=== PATIENT | male | born 1945 | race Caucasian/White ===

== ENCOUNTER 2019-03-11 09:53 | Emergency (ER) | payer OTHER ==
[~2019-03-11] VITALS: Ht 182.9 cm; Wt 84.8 kg
[~2019-03-11 09:53] MED LIST: ASPI81CH PO; FINA5 PO; Flomax0.4 MG PO
[2019-03-11 10:22] LABS: BASOPHILS ABSOLUTE AUTO 0.06 K/mm3 (0.00-0.23); BASOPHILS PERCENT AUTO 1 % (0-2); EOSINOPHILS PERCENT AUTO 4 % (0-6); Hematocrit 45.3 % (37.0-53.0); Hemoglobin 15.4 g/dL (13.5-17.5); IMMATURE GRAN ABSOLUTE AUTO 0.02 K/mm3 (0.00-0.10); IMMATURE GRAN PERCENT AUTO 0 % (0-1); LYMPHOCYTES ABSOLUTE AUTO 1.76 K/mm3 (0.84-5.20); LYMPHOCYTES PERCENT AUTO 34 % (21-46); MONOCYTES PERCENT AUTO 10 % (4-13); Mean Corpuscular HGB 32.2 pg (26.0-34.0); Mean Corpuscular Volume 95 fL (80-100); Mean Platelet Volume 10.5 fL (9.1-12.4); NEUTROPHILS ABSOLUTE AUTO 2.68 K/mm3 (1.96-9.15); NEUTROPHILS PERCENT AUTO 51 % (41-73); Platelet Count 160 K/mm3 (150-400); RDW Coefficient Variation 12.4 % (11.7-14.2); RDW Standard Deviation 42.9 fL (35.1-46.3); Red Blood Cell Count 4.78 M/mm3 (4.30-5.90); White Blood Cell Count 5.22 K/mm3 (4.00-11.30)
[2019-03-11 10:40] LABS: Alanine Aminotransfer (ALT/SGP 29 U/L (12-78); Albumin, Blood 3.4 g/dL (3.4-5.0); Alk Phos 69 U/L (50-136); Anion Gap 6 mmol/L (6-16); Aspartate Aminotrans (AST/SGOT 25 U/L (12-37); Bilirubin, Total 0.5 mg/dL (0.1-1.0); Blood Urea Nitrogen 20 mg/dL (8-24); Bun/Creatinine Ratio 20.7 (12.0-20.0); CO2, Blood 24 mmol/L (21-32); Calcium, Blood 9.1 mg/dL (8.5-10.1); Chloride, Blood 107 mmol/L (98-108); Creatinine, Blood 0.97 mg/dL (0.60-1.20); Globulin, Blood 3.3 g/dL (2.2-4.0); Glomerular Filtration Rate >60 (60-); Glucose, Blood 160 mg/dL (70-99); Potassium, Blood 4.1 mmol/L (3.5-5.5); Sodium, Blood 137 mmol/L (136-145); Total Protein, Blood 6.7 g/dL (6.4-8.2)
== END 2019-03-11 11:30 | disposition home or self-care (01) ==
LOC: ER 09:53
PROVIDERS: Emergency Medicine
DX: T18.128A Food in esophagus causing other injury, initial encounter (principal); R55 Syncope and collapse; Z87.891 Personal history of nicotine dependence; Z88.8 Allergy status to other drugs, medicaments and biological substances; Z79.899 Other long term (current) drug therapy; Z79.82 Long term (current) use of aspirin; W45.8XXA Other foreign body or object entering through skin, initial encounter
CPT/HCPCS: 36415; 80053; 85025; 93005; 93010; 99284-25

== ENCOUNTER 2024-12-22 09:32 | Day surgery (SDC) | payer OTHER ==
[~2024-12-22] VITALS: Ht 177.8 cm; Wt 90.0 kg
[~2024-12-22 09:32] MED LIST changes: +NS 500 ML IV ONE
[2024-12-22] MEDS ORDERED: CeFAZolin Sodium 2,000 MG VIAL ONE (09:52)
[2024-12-22] MEDS ORDERED: NS 500 ML IV ONE (09:56)
[2024-12-22] MEDS ORDERED: OMEP20ER PO (09:58)
[2024-12-22] MEDS ORDERED: DOXA4 PO (09:58)
[2024-12-22] MEDS ORDERED: MELATONIN5 M1 PO (09:58)
[2024-12-22] MEDS ORDERED: Midazolam HCl 1MG / ML 2ML Vial ONE (10:15)
--- NOTE | 2024-12-22 10:23 | NUR ---
12/22/[email or web address] INJECTED 7ML LOCAL AT OP SITE. PT TOLERATED WELL.
[2024-12-22 10:54] VITALS: BP 144/76
== END 2024-12-22 11:13 | disposition home or self-care (01) ==
LOC: ORSCSDS 09:32
PROVIDERS: Orthopaedic Surgery
PROC: 01N50ZZ Release Median Nerve, Open Approach (ICD-10-PCS; principal; 2024-12-22 11:00)
DX: G56.01 Carpal tunnel syndrome, right upper limb (principal); J44.9 Chronic obstructive pulmonary disease, unspecified; Z87.891 Personal history of nicotine dependence; Z79.82 Long term (current) use of aspirin; Z79.899 Other long term (current) drug therapy
CPT/HCPCS: J0690; J2250; J7040

== ENCOUNTER 2025-02-07 21:10 | Inpatient (IN) | payer OTHER ==
[~2025-02-07] VITALS: Ht 182.9 cm; Wt 88.5 kg
[~2025-02-07 21:10] MED LIST changes: +DOXA4 PO; +MELATONIN5 M1 PO; -NS 500 ML IV ONE; +OMEP20ER PO
[2025-02-07] MEDS ORDERED: Morphine Sulfate 4 MG/1 ML Injection IV ONE (22:45)
[2025-02-07] MEDS ORDERED: Ondansetron HCl 2 MG / ML 2ML Vial IV ONE (22:50)
[2025-02-07] MEDS ORDERED: NS 1,000 ML IV SCH (22:50)
[2025-02-07 23:53] LABS: BASOPHILS ABSOLUTE AUTO 0.05 K/mm3 (0.00-0.23); BASOPHILS PERCENT AUTO 1 % (0-2); EOSINOPHILS ABSOLUTE AUTO 0.01 K/mm3 (0.00-0.68); EOSINOPHILS PERCENT AUTO 0 % (0-6); Hematocrit 43.8 % (37.0-53.0); Hemoglobin 15.0 g/dL (13.5-17.5); IMMATURE GRAN ABSOLUTE AUTO 0.04 K/mm3 (0.00-0.10); IMMATURE GRAN PERCENT AUTO 0 % (0-1); LYMPHOCYTES ABSOLUTE AUTO 0.73 K/mm3 (0.84-5.20); LYMPHOCYTES PERCENT AUTO 7 % (21-46); MONOCYTES ABSOLUTE AUTO 0.71 K/mm3 (0.16-1.47); MONOCYTES PERCENT AUTO 7 % (4-13); Mean Corpuscular HGB Conc 34.2 g/dL (31.5-36.5); Mean Corpuscular Volume 93 fL (80-100); NEUTROPHILS ABSOLUTE AUTO 9.27 K/mm3 (1.96-9.15); NEUTROPHILS PERCENT AUTO 86 % (41-73); NRBC ABSOLUTE 0.00 K/mm3 (0.00-0.02); NRBC Auto 0.0 /100 WBC (0.0-0.2); Platelet Count 196 K/mm3 (150-400); RDW Coefficient Variation 12.7 % (11.7-14.2); RDW Standard Deviation 43.6 fL (35.1-46.3)
[2025-02-07] MEDS ORDERED: CefTRIAXone Sodium 1,000 MG in NS 100 ML IV ONE (23:55)
[2025-02-08 00:09] LABS: Prothrombin Time Results 10.7 Sec (9.7-11.5)
[2025-02-08 00:18] LABS: Alanine Aminotransfer (ALT/SGP 32.0 U/L (12-78); Albumin, Blood 3.5 g/dL (3.4-5.0); Albumin/Globulin Ratio 0.9 (0.8-1.8); Anion Gap 11.0 mmol/L (3-11); Aspartate Aminotrans (AST/SGOT 21.0 U/L (12-37); Bilirubin, Total 0.7 mg/dL (0.1-1.0); Blood Urea Nitrogen 24.0 mg/dL (8-24); CO2, Blood 24.0 mmol/L (21-32); Calcium, Blood 9.7 mg/dL (8.5-10.1); Chloride, Blood 103.0 mmol/L (98-108); Creatinine, Blood 0.95 mg/dL (0.60-1.20); Globulin, Blood 3.9 g/dL (2.2-4.0); Glucose, Blood 166.0 mg/dL (70-99); Magnesium, Blood 2.3 mg/dL (1.6-2.4); Potassium, Blood 3.9 mmol/L (3.5-5.5); Sodium, Blood 134.0 mmol/L (136-145); Total Protein, Blood 7.4 g/dL (6.4-8.2)
[2025-02-08 00:39] LABS: Influenza A, PCR NEGATIVE (NEGATIVE); Influenza B, PCR NEGATIVE (NEGATIVE); Resp Syncytial Virus, PCR NEGATIVE (NEGATIVE); SARS-Cov-2 (COVID-19) PCR, MMC NEGATIVE (NEGATIVE)
[2025-02-08] MEDS ORDERED: HYDROmorphone HCl/Pf 1MG SYR IV PRN (01:35)
[2025-02-08] MEDS ORDERED: Ondansetron HCl 2 MG / ML 2ML Vial IV PRN ×2 (01:35→03:10)
--- NOTE | 2025-02-08 02:15 | NUR ---
PT ARRIVES TO ROOM 211 FROM ED VIA GURNEY WITH STAFF. PT ORIENTED TO ROOM. BED IN LOW POSITION AND CALL LIGHT WITHIN REACH.
[2025-02-08 02:28] VITALS: BP 151/97
[2025-02-08] MEDS ORDERED: Ipratropium/Albuterol SulF 2.5-0.5MG/3 ML Amp INH PRN (03:15)
[2025-02-08] MEDS ORDERED: FLU VACC TS2025(65UP)/MF59C/PF 45 MCG/0.5 ML SYRINGE IM SCH (03:15)
[2025-02-08 04:12] VITALS: BP 153/93
--- NOTE | 2025-02-08 04:22 | NUR ---
SHIFT SUMMARY NO ACUTE EVENTS SINCE ARRIVAL. PT C/O PAIN UPON ARRIVAL BUT WHEN THIS RN WENT TO MEDICATE WITH IV PAIN MEDICATION, PT WAS ASLEEP. WHEN REAWAKENED, HE WAS ABLE TO ANSWER QUESTIONS FOR ASSESSMENT/HISTORY BUT THEN WOULD FALL BACK TO SLEEP. IV PAIN MEDICATION NOT GIVEN OF THE TIME OF THIS NOTE. PT IS CURRENTLY NPO.
[2025-02-08 04:32] LABS: BASOPHILS ABSOLUTE AUTO 0.03 K/mm3 (0.00-0.23); BASOPHILS PERCENT AUTO 0 % (0-2); EOSINOPHILS ABSOLUTE AUTO 0.00 K/mm3 (0.00-0.68); EOSINOPHILS PERCENT AUTO 0 % (0-6); Hematocrit 40.6 % (37.0-53.0); Hemoglobin 13.8 g/dL (13.5-17.5); IMMATURE GRAN ABSOLUTE AUTO 0.04 K/mm3 (0.00-0.10); IMMATURE GRAN PERCENT AUTO 0 % (0-1); LYMPHOCYTES ABSOLUTE AUTO 1.33 K/mm3 (0.84-5.20); LYMPHOCYTES PERCENT AUTO 13 % (21-46); MONOCYTES ABSOLUTE AUTO 0.93 K/mm3 (0.16-1.47); MONOCYTES PERCENT AUTO 9 % (4-13); Mean Corpuscular HGB Conc 34.0 g/dL (31.5-36.5); Mean Corpuscular Volume 95 fL (80-100); NEUTROPHILS ABSOLUTE AUTO 8.34 K/mm3 (1.96-9.15); NEUTROPHILS PERCENT AUTO 78 % (41-73); NRBC ABSOLUTE 0.00 K/mm3 (0.00-0.02); NRBC Auto 0.0 /100 WBC (0.0-0.2); Platelet Count 190 K/mm3 (150-400); RDW Coefficient Variation 12.9 % (11.7-14.2); RDW Standard Deviation 45.2 fL (35.1-46.3)
[2025-02-08 04:52] LABS: Alanine Aminotransfer (ALT/SGP 27.0 U/L (12-78); Albumin, Blood 3.1 g/dL (3.4-5.0); Albumin/Globulin Ratio 0.9 (0.8-1.8); Anion Gap 8.0 mmol/L (3-11); Aspartate Aminotrans (AST/SGOT 18.0 U/L (12-37); Bilirubin, Total 0.4 mg/dL (0.1-1.0); Blood Urea Nitrogen 23.0 mg/dL (8-24); CO2, Blood 24.0 mmol/L (21-32); Calcium, Blood 9.5 mg/dL (8.5-10.1); Chloride, Blood 107.0 mmol/L (98-108); Creatinine, Blood 0.93 mg/dL (0.60-1.20); Globulin, Blood 3.6 g/dL (2.2-4.0); Glucose, Blood 152.0 mg/dL (70-99); Magnesium, Blood 2.2 mg/dL (1.6-2.4); Potassium, Blood 4.1 mmol/L (3.5-5.5); Sodium, Blood 135.0 mmol/L (136-145); Total Protein, Blood 6.7 g/dL (6.4-8.2)
--- NOTE | 2025-02-08 05:08 | NUR ---
CALL TO LAB ORDER FOR ADDITIONAL LAB RECEIVED. CALL TO LAB AND DROP WIRE ALINER REPORTS ABLE TO ADD TO RECENTLY DRAWN LABS.
[2025-02-08] MEDS ORDERED: NS 250 ML IV PRN (05:25)
[2025-02-08 07:44] VITALS: BP 154/107; BP 155/86
[2025-02-08] MEDS ORDERED: Lactobacil 2-S.Thermo-Bifido 1 1 Cap PO SCH (09:00)
[2025-02-08] MEDS ORDERED: Metoclopramide HCl 5MG / ML 2ML Vial IV PRN (09:50)
[2025-02-08 14:50] VITALS: BP 144/84
--- NOTE | 2025-02-08 16:27 | NUR ---
SHIFT SUMMARY ADMITTED ON 02/08 FOR RIB FRACTURES FOLLOWING FALL. NO ACUTE CHANGES THIS SHIFT. A&O x4, VSS, HRR. STATES NO SOB. CURRENTLY ON 2L O2 NC w/CONTINOUS BIOX >93%. ATTEMPTED TO TITRATE TO RA, <88% w/ACTIVITY. PAIN MANAGED WELL PER EMAR. TOLERATING REGULAR DIET WELL. USING URINAL INDEPEDENTLY. ENCOURAGING INCENTIVE SPIROMETER. CURRENTLY RESTING IN BED. CALL LIGHT WITHIN REACH.
[2025-02-08 20:00] VITALS: BP 149/81
[2025-02-08] MEDS ORDERED: CefTRIAXone Sodium 1,000 MG in NS 100 ML IV SCH (21:00)
--- NOTE | 2025-02-09 04:39 | NUR ---
SHIFT SUMMARY PT ADMITTED FOR L 5TH THROUGH 9TH RIB FX FOLLOWING A FALL. NO ACUTE CHANGES THIS SHIFT. A&O X4. VSS. PT RECEIVING 2L O2 VIA NC W/CONTINUOUS PULSE OX IN PLACE, SPO2 95%. PAIN MANAGED WELL PER EMAR. PT URINATING INDEPENDENTLY USING URINAL. PT RESTING IN BED, RESPIRATIONS EVEN AND UNLABORED, NO DISTRESS NOTED. CALL LIGHT WITHIN REACH.
[2025-02-09 04:54] VITALS: BP 164/93
[2025-02-09 07:19] VITALS: BP 145/82
[2025-02-09 14:03] VITALS: BP 144/76
--- NOTE | 2025-02-09 16:48 | NUR ---
SHIFT SUMMARY L RIB FX PT IS A/OX4. PT WEENED DOWN TO 1L NC, STATING ABOVE 95%, ON CONT. BIOX. PT IS SBA W/ FWW. REQUIRES VERBAL ENCOURAGEMENT. PT WORKED W/ PHYSICAL THERAPY TODAY. PAIN MANAGED PER EMAR. PT DENIES N/V. DENIES CP/P. PLAN IS TO DC CHRISTIANO. CALL LIGHT IN REACH BED IN LOWEST POSITION.
[2025-02-09 19:44] VITALS: BP 120/78
--- NOTE | 2025-02-10 03:59 | NUR ---
SHIFT SUMMARY PT ADMITTED FOR L 5TH THROUGH 9TH RIB FX AFTER FALLING FROM A LADDER. NO ACUTE CHANGES THIS SHIFT. PT A&O X4. VSS. PAIN MANAGED WELL PER EMAR. PT RECEIVING 1L O2 VIA NC W/CONTINUOUS PULSE OX IN PLACE, SPO2 95%. PLAN TO DISCHARGE TODAY WILL HOME HEALTH. PT RESTING IN BED WITH EYES CLOSED, RESPIRATIONS EVEN AND UNLABORED, NO DISTRESS NOTED. CALL LIGHT WITHIN REACH.
[2025-02-10 04:55] VITALS: BP 169/89
[2025-02-10 06:59] VITALS: BP 136/93
--- NOTE | 2025-02-10 10:27 | NUR ---
PT STATES HE FEELS READY TO DISCHARGE. AMBULATED IN [place] AND IS UP IN CHAIR.
--- NOTE | 2025-02-10 10:58 | NUR ---
DR MEDRANO IN TO SEE PT.
[2025-02-10] MEDS ORDERED: TRAM50 PO (11:07)
[2025-02-10 11:08] VITALS: BP 154/76
--- NOTE | 2025-02-10 11:23 | NUR ---
DISCHARGED DR MEDRANO IN TO SEE PT AND SAID OKAY TO DISCHARGE. PT/S 02 SATS 90% ON RA, DR MEDRANO AND THIS RN ENCOURAGED IS USE. DR MEDRANO DISCUSSED MONITORING 02 SATS AT HOME WITH PT, PT STATES HAS PULSE OX AT HOME. VSS. REVIEWED DC INSTRUCTIONS W/PT AND SPOUSE; EMPHASIZED IMPORTANCE OF IS USE AND MOBILIZING. PT AND SPUSE VERBALIZED UNDERSTANDING. PT SIGNED DC PAPERWORK. SPOUSE TOOK POSSESSIONS AND DC PAPERWORK OUT TO CAR AND IS PULLING UP TO PATIENCE ENTRANCE. PT PREPARING TO LEAVE UNIT IN WC.
--- NOTE | 2025-02-10 11:27 | NUR ---
DISCHARGED PT LEFT UNIT IN TO MEET SPOUSE OUTSIDE.
== END 2025-02-10 11:31 | disposition home or self-care (01) | DRG 183 ==
LOC: ER 21:10 → SURS 02-08 01:34
PROVIDERS: Student in an Organized Health Care Education/Training Program; ADMIT Surgery
DX: S22.42XA Multiple fractures of ribs, left side, initial encounter for closed fracture (principal); J96.01 Acute respiratory failure with hypoxia; J98.11 Atelectasis; K21.9 Gastro-esophageal reflux disease without esophagitis; Z96.651 Presence of right artificial knee joint; W11.XXXA Fall on and from ladder, initial encounter; Z88.5 Allergy status to narcotic agent; Z88.8 Allergy status to other drugs, medicaments and biological substances; Z79.82 Long term (current) use of aspirin; Z87.891 Personal history of nicotine dependence
CPT/HCPCS: 36415; 71045; 71260; 74177; 80053; 83735; 83880; 84145; 84484; 85025; 85610; 85730; 86850; 86900; 86901; 87637; 93005; 93010; 94762; 96361; 96365; 96375-59; 97116; 97162; 97530; 99285-25; A9270; J0456; J0696; J1171; J2270; J2405; J2765; J7030; J7050; Q9967